=== PATIENT | female | born 1980 | race Two or more races ===

== ENCOUNTER 2017-11-14 20:29 | Emergency (ER) | payer OTHER ==
[~2017-11-14] VITALS: Ht 157.5 cm; Wt 65.3 kg
[2017-11-14] MEDS ORDERED: MOTRIN800 MG PO (21:51)
[2017-11-14] MEDS ORDERED: AMOXICILLIN875 MG PO (21:51)
[2017-11-14] MEDS ORDERED: TRAMADOL HCL50 MG PO (21:51)
[2017-11-14 22:12] VITALS: BP 116/70
== END 2017-11-14 22:14 | disposition home or self-care (01) ==
LOC: EME 20:29 → RME 20:29
DX: K08.89 Other specified disorders of teeth and supporting structures (principal); B19.20 Unspecified viral hepatitis C without hepatic coma
CPT/HCPCS: 99281; 99284